=== PATIENT | male | born 1955 | race Caucasian/White ===

== ENCOUNTER → 2023-06-04 08:22 | Outpatient (REF) | payer MEDICARE, SELFPAY ==
[2023-06-04 09:38] LABS: ALT (SGPT) 30 U/L (0-50); AST (SGOT) 27 U/L (17-59); HDL Cholesterol 63 mg/dl; LDL Cholesterol, Calculated 129 mg/dl; Total Cholesterol 212 mg/dl (50-199); Triglyceride 104 mg/dl (10-149); Very Low Density Lipoprotein 20 mg/dl (0-30)
== END ==
LOC: REG 08:22
PROVIDERS: ATTENDING PHYSICIAN Nurse Practitioner; FAMILY PHYSICIAN Family Medicine
DX: E78.2 Mixed hyperlipidemia (principal)
CPT/HCPCS: 36415; 80061; 84450; 84460

== ENCOUNTER → 2024-01-03 08:14 | Outpatient (REF) | payer MEDICARE, SELFPAY ==
[2024-01-03 10:47] LABS: HDL Cholesterol 58 mg/dl; LDL Cholesterol, Calculated 111 mg/dl; Total Cholesterol 206 mg/dl (50-199); Triglyceride 189 mg/dl (10-149); Very Low Density Lipoprotein 37 mg/dl (0-30)
== END ==
LOC: REG 08:14
PROVIDERS: ATTENDING PHYSICIAN Nurse Practitioner; FAMILY PHYSICIAN Family Medicine
DX: E78.2 Mixed hyperlipidemia (principal)
CPT/HCPCS: 36415; 80061